=== PATIENT | male | born 1955 | race Caucasian/White ===

== ENCOUNTER 2022-06-02 08:54 | Inpatient (IN) | payer MEDICARE, MEDICAID, SELFPAY ==
[2022-06-02] VITALS (70 sets, daily range): BP systolic 103–216; BP diastolic 56–118; PULSE 68–139; RESP 8–42; TEMP 36.6; O2SAT 88–99; BMI 27.1
--- NOTE | 2022-06-02 09:12 | DI.RAD.S_ITS ---
PROCEDURE: XR CHEST 1V INDICATIONS: short of breath TECHNIQUE: One view of the chest was acquired. COMPARISON: None. FINDINGS: Surgical changes and devices: A left PICC terminates in the mid SVC. Lungs and pleura: Lungs are clear. No pleural effusions or pneumothorax. Mediastinum: Mediastinal contours appear normal. Heart size is normal. Bones and chest wall: No suspicious bony lesions. Overlying soft tissues appear unremarkable. IMPRESSION: No acute radiographic abnormality. A left PICC terminates in the mid SVC. Dictated by: Douglas Fernandez M.D. on 06/02/2022 at 9:58 Approved by: Douglas Fernandez M.D. on 06/02/2022 at 9:58
[2022-06-02 09:19] LABS: Add Manual Diff / Slide Review NO; Basophils Absolute Auto 0 /uL (0-100); Basophils Percent Auto 0.2 % (0-2); Eosinophils Absolute Auto 0 /uL (0-450); Eosinophils Percent Auto 0.2 % (2-4); Hematocrit 42.2 % (41-53); Hemoglobin 14.2 g/dL (13.5-17.5); Lymphocytes Absolute Auto 900 /uL (1100-4500); Lymphocytes Percent Auto 8.6 % (25-40); Mean Corpuscular HGB Conc 33.7 % (30-36); Mean Corpuscular Hemoglobin 28.4 PG (26-34); Mean Corpuscular Volume 84.3 fL (80-100); Monocytes Absolute Auto 400 /uL (0-900); Monocytes Percent Auto 3.3 % (3-14); Neutrophils Absolute Auto 9400 /uL (1500-7000); Neutrophils Percent Auto 87.7 % (50-75); Platelet Count 271 X10^3/uL (150-400); Red Blood Cell Count 5.01 X10^6/uL (4.5-5.9); Red Cell Distribution Width 16.3 % (11.6-14.8); White Blood Cell Count 10.8 X10^3/uL (4.5-11.0)
[2022-06-02 09:32] LABS: Alanine Aminotransferase 33 IU/L (<50); Albumin 4.3 g/dL (3.5-5.0); Albumin Globulin Ratio 1.1 (1.0-2.8); Alkaline Phosphatase 203 U/L (38-126); Aspartate Aminotransferase 34 IU/L (17-59); BUN Creatinine Ratio 16.7 (6-22); Bilirubin Total 0.5 mg/dL (0.2-1.3); Blood Urea Nitrogen 19 mg/dL (9-20); Calcium 9.2 mg/dL (8.4-10.2); Carbon Dioxide 20 mmol/L (22-32); Chloride 105 mmol/L (98-107); Creatine Kinase 107 U/L (55-170); Estimated Glomerular Filt Rate > 60 mL/min (>60); Globulin 3.8 g/dL (1.7-4.1); Glucose 179 mg/dL (80-110); HEMOLYSIS 16 (0-50); Potassium 4.3 mmol/L (3.4-5.1); Sodium 138 mmol/L (137-145); Total Protein 8.1 g/dL (6.3-8.2)
[2022-06-02 09:40] LABS: COVID19 -Nasal RAPID Negative (Negative)
[2022-06-02 09:43] LABS: Troponin I < 0.012 ng/mL (0.01-0.034)
[2022-06-02 09:47] LABS: CKMB % Relative Index 1.7 % (1.5-5.0); Creatine Kinase MB 1.77 ng/mL (<2.37)
[2022-06-02 09:48] LABS: Procalcitonin 0.08 ng/mL (<0.5)
[2022-06-02 09:55] LABS: Lactate (Lactic Acid) 6.5 mmol/L (0.7-2.1)
--- NOTE | 2022-06-02 10:05 | ED_ITS ---
HPI - Weakness General Chief complaint: Neuro Symptoms/Deficit Stated complaint: Foggy, possible infection Time Seen by Provider: 06/02/22 09:12 Source: patient and EMS Mode of arrival: EMS History of Present Illness HPI Narrative: Patient is a 66-year-old with recent peritoneal abscess with drain, type 2 diabetes, BPH presenting today with left arm shaking. He is currently residing at a rehab facility. He is getting IV antibiotics PICC line for his peritoneal abscess. He was admitted at [facility] for this abscess records have been requested. This morning he woke up with left arm shaking. He reports he was conscious the whole time his arm was shaking he was able to kind of stop it. Kind of slid off the bed did not hit his head. It then happened again. He just does not feel quite right. He denies any fever or chills. He has no worsening abdominal pain he reports that the drain seems to be working it is draining s erosanguineous fluid. Bowel movements are normal no chest pain or shortness of breath although he is noted to be mildly hypoxic. He reports that he is on IV antibiotics until August. He was noted quite tachycardic per EMS with a heart rate in the 130s but here initially at 113 Related Data Allergies Allergy/AdvReac Type Severity Reaction Status Date / Time midazolam [From Versed] AdvReac Drowsy Verified 06/02/22 15:36 Review of Systems Review of Systems ROS Unobtainable: All systems reviewed & are unremarkable except as noted in HPI and below Patient History Medical History Type 2 diabetes mellitus Surgical History History of ureter stent Social History household members: spouse Smoking Status: Never smoker Smoking Status: Never smoker alcohol intake frequency: 0-2 drinks per day Substance Use Type: marijuana Exam Initial Vital Signs Initial Vital Signs: Vital Signs Pulse Rate 115 H 06/02/22 08:56 Pulse Oximetry 95 06/02/22 08:56 GENERAL: Alert pleasant 66-year-old male and in no acute distress. HEENT: Head atraumatic,EOMI, pupils reactive, face symmetric, moist mucous membranes CARDIOVASCULAR: Regular rate and rhythm without murmurs, rubs or gallops. RESPIRATORY: Breath sounds equal bilaterally, no wheezes rales or rhonchi. ABDOMEN: Soft, nontender. Normoactive bowel sounds all 4 quadrants. No guarding or rebound. Left lower flank/quadrant drain serosanguineous fluid EXTREMITIES: Normal range of motion, no clubbing or edema. Neurovascularly intact NEUROLOGICAL: Alert and oriented x4.Normal gait and speech. Heel [place] strength equal bilaterally SKIN: Warm, dry, no laceration, no petechiae, no rashes or lesions. PICC line in place left arm no erythema significant swelling Course Orders Ordered: ED Orders 06/02/22 22:56 Consult to Tele-revenue cycle manager Routine 06/02/22 23:08 Consult to Dietitian, Adult Routine Consult to Occupational Therapy Evaluate & Treat Consult to Physical Therapy Evaluate & Treat 06/02/22 23:15 PTT Partial Thromboplastin Bob Q6H 06/02/22 23:24 Hemoglobin and Hematocrit Urgent Magnesium Urgent 06/02/22 23:37 Urine Culture Stat 06/03/22 05:46 Complete Blood Count AUTO DIFF DAILY Comprehensive Metabolic Panel DAILY PTT Partial Thromboplastin Bob Q6H 06/03/22 11:15 PTT Partial Thromboplastin Bob Q6H 06/03/22 17:15 PTT Partial Thromboplastin Bob Q6H 06/04/22 05:00 Complete Blood Count AUTO DIFF DAILY Comprehensive Metabolic Panel DAILY 06/05/22 05:00 Complete Blood Count AUTO DIFF DAILY Comprehensive Metabolic Panel DAILY 06/06/22 05:00 Complete Blood Count AUTO DIFF DAILY Comprehensive Metabolic Panel DAILY Acetaminophen (Acetaminophen 325 Mg Tablet) 650 mg PO Q6H PRN PRN Reason: Fever/Mild Pain (1-3) Hydrocodone Bitart/Acetaminophen (Hydrocodone/Acet 5/325 Tablet) 2 tab PO Q4H PRN PRN Reason: Pain, Severe (5-10) Last Admin: 06/03/22 06:20 Dose: 2 tab Documented By: AW Al Hydrox/Mg Hydrox/Simethicone (Mag Hydrox/Alum/Simeth 30 Ml Udc) 30 ml PO Q6HR PRN PRN Reason: Dyspepsia Calcium Carbonate (Calcium Carbonate 500 Mg Tab) 1,000 mg PO Q4HR PRN PRN Reason: Dyspepsia Dextrose (Dextrose 50 % In Water 25 Gm/50 Ml Syringe) 25 gm IV PRN PRN PRN Reason: Hypoglycemia Heparin Sodium/Dextrose (Heparin Drip) 25,000 unit in 500 mls @ 24 mls/hr IV CONT SHANNON; Protocol Last Titration: 06/03/22 06:38 Dose: 1,500 units/hr, 30 mls/hr Documented By: Titration: 06/03/22 01:39 Dose: 1,400 units/hr, 28 mls/hr Documented By: Titration: 06/02/22 19:30 Dose: 1,300 units/hr, 26 mls/hr Documented By: Titration: 06/02/22 18:30 Dose: 0 units/hr, 0 mls/hr Documented By: Admin: 06/02/22 12:17 Dose: 1,200 units/hr, 24 mls/hr Documented By: LANETTE Ertapenem 1 gm/ Sodium (Chloride) 100 mls @ 200 mls/hr IV Q24H [facility] Last Infusion: 06/03/22 06:51 Dose: 0 mls/hr Documented By: Admin: 06/03/22 06:19 Dose: 200 mls/hr Documented By: PARAG Insulin Glargine (Insulin Glargine 100 Unit/Ml 3ml Pen) 8 unit SUBCUT 0800 [facility] Insulin Human Lispro (Insulin Lispro 100 Unit/Ml 3ml Vial) 0 unit SUBCUT ACHS [facility]; Protocol Levetiracetam (Levetiracetam 250 Mg Tablet) 1,500 mg PO BID [facility] Last Admin: 06/03/22 00:00 Dose: 1,500 mg Documented By: PARAG Metoprolol Tartrate (Metoprolol Tartrate 5 Mg/5 Ml Inj) 5 mg IV Q15MIN [facility] Stop: 06/04/22 20:01 Naloxone HCl (Naloxone 0.4 Mg/Ml Vial) 0.2 mg IV Q2MIN PRN PRN Reason: Opiate Reversal Ondansetron HCl (Ondansetron 4 Mg/2 Ml Inj) 4 mg IV Q4HR PRN PRN Reason: Nausea And Vomiting Discontinued Medications Heparin Sodium (Porcine) (Heparin 5,000 Unit/Ml Vial) 7,300 unit 80 unit/kg (7300 unit) IV NOW ONE Stop: 06/02/22 11:34 Last Admin: 06/02/22 12:17 Dose: 7,300 unit Documented By: LANETTE Heparin Sodium (Porcine) (Heparin 5,000 Unit/Ml Vial) 2,000 unit IV NOW ONE Stop: 06/02/22 18:50 Last Admin: 06/02/22 19:24 Dose: 2,000 unit Documented By: LANETTE Heparin Sodium (Porcine) (Heparin 5,000 Unit/Ml Vial) 2,000 unit IV NOW ONE Stop: 06/03/22 01:41 Last Admin: 06/03/22 01:43 Dose: 2,000 unit Documented By: PARAG Heparin Sodium (Porcine) (Heparin 5,000 Unit/Ml Vial) 2,000 unit IV NOW ONE Stop: 06/03/22 06:35 Last Admin: 06/03/22 06:44 Dose: 2,000 unit Documented By: PARAG Sodium Chloride (Normal Saline 0.9%) 2,721.54 mls @ 907.18 mls/hr 30 ml/kg infuse over 3 hr (2721.54 ml) IV NOW ONE Stop: 06/02/22 13:12 Last Infusion: 06/02/22 13:58 Dose: 0 mls/hr Documented By: Admin: 06/02/22 10:16 Dose: 907.18 mls/hr Documented By: LANETTE Levetiracetam 1,000 mg/ Sodium (Chloride) 110 mls @ 440 mls/hr IV NOW ONE Stop: 06/02/22 13:34 Last Infusion: 06/02/22 15:00 Dose: 0 mls/hr Documented By: Admin: 06/02/22 14:32 Dose: 440 mls/hr Documented By: LANETTE Vital Signs Vital signs: Vital Signs - 8 hr 06/02/22 23:15 06/02/22 23:15 06/02/22 23:30 Temperature Pulse Rate 76 Respiratory Rate 18 Blood Pressure 119/75 141/73 H Pulse Oximetry 94 06/02/22 23:30 06/02/22 23:45 06/02/22 23:45 Temperature Pulse Rate 81 74 Respiratory Rate 13 16 Blood Pressure 119/67 Pulse Oximetry 96 95 06/03/22 00:00 06/03/22 00:00 06/03/22 00:15 Temperature Pulse Rate 70 75 Respiratory Rate 22 15 Blood Pressure 116/65 Pulse Oximetry 95 94 06/03/22 00:15 06/03/22 00:30 06/03/22 00:30 Temperature Pulse Rate 93 H Respiratory Rate 27 H Blood Pressure 124/67 104/77 Pulse Oximetry 95 06/03/22 01:00 06/03/22 01:00 06/03/22 02:00 Temperature Pulse Rate 82 Respiratory Rate 16 Blood Pressure 127/65 108/69 Pulse Oximetry 95 06/03/22 02:00 06/03/22 03:00 06/03/22 03:00 Temperature Pulse Rate 77 75 Respiratory Rate 15 16 Blood Pressure 122/70 Pulse Oximetry 95 06/03/22 04:00 06/03/22 04:00 06/03/22 04:02 Temperature Pulse Rate 69 83 Respiratory Rate 14 16 Blood Pressure 90/57 L Pulse Oximetry 92 93 06/03/22 04:02 06/03/22 05:00 06/03/22 05:00 Temperature Pulse Rate 72 Respiratory Rate 14 Blood Pressure 111/63 102/63 Pulse Oximetry 95 06/03/22 05:11 Temperature 98.2 F Pulse Rate 84 Respiratory Rate 12 Blood Pressure 121/81 Pulse Oximetry 97 MDM - Weakness Lab Data 06/03/22 05:46 06/03/22 05:46 Labs: Lab Results 06/02/22 06/02/22 06/02/22 Range/Units 09:05 09:05 09:05 WBC 10.8 (4.5-11.0) X10^3/uL RBC 5.01 (4.5-5.9) X10^6/uL Hgb 14.2 (13.5-17.5) g/dL Hct 42.2 (41-53) % MCV 84.3 (80-100) fL MCH 28.4 (26-34) PG MCHC 33.7 (30-36) % RDW 16.3 H (11.6-14.8) % Plt Count 271 (150-400) X10^3/uL Neut % (Auto) 87.7 H (50-75) % Lymph % (Auto) 8.6 L (25-40) % [place] % (Auto) 3.3 (3-14) % Eos % (Auto) 0.2 L (2-4) % Baso % (Auto) 0.2 (0-2) % Neut # (Auto) 9400 H (1961-8980) /uL Lymph # (Auto) 900 L (4249-9040) /uL [place] # (Auto) 400 (0-900) /uL Eos # (Auto) 0 (0-450) /uL Baso # (Auto) 0 (0-100) /uL APTT (26-36) SECONDS Sodium 138 (137-145) mmol/L Potassium 4.3 (3.4-5.1) mmol/L Chloride 105 (98-107) mmol/L Carbon Dioxide 20 L (22-32) mmol/L BUN 19 (9-20) mg/dL Creatinine 1.14 (0.66-1.25) mg/dL Estimated GFR > 60 (>60) mL/min BUN/Creatinine Ratio 16.7 (6-22) Glucose 179 H (80-110) mg/dL Lactate 6.5 H* (0.7-2.1) mmol/L Calcium 9.2 (8.4-10.2) mg/dL Magnesium (1.6-2.3) mg/dL Total Bilirubin 0.5 (0.2-1.3) mg/dL AST 34 (17-59) IU/L ALT 33 (<50) IU/L Alkaline Phosphatase 203 H (38-126) U/L Total Creatine Kinase 107 (55-170) U/L CK-MB (CK-2) 1.77 (<2.37) ng/mL CK-MB (CK-2) Rel Index 1.7 (1.5-5.0) % Troponin I < 0.012 (0.01-0.034) ng/mL NT-Pro-B Natriuret Pep (<125) pg/mL Total Protein 8.1 (6.3-8.2) g/dL Albumin 4.3 (3.5-5.0) g/dL Globulin 3.8 (1.7-4.1) g/dL Albumin/Globulin Ratio 1.1 (1.0-2.8) Procalcitonin 0.08 (<0.5) ng/mL Prolactin (3.7-17.9) ng/mL Urine Color Urine Appearance Urine pH (4.5-8.0) Ur Specific [place] (1.000-1.035) Urine Protein (Negative) Urine Glucose (UA) (Negative) g/dL Urine Ketones (NEGATIVE) Urine Occult Blood (Negative) Urine Nitrate (Negative) Urine Bilirubin (NEGATIVE) Urine Urobilinogen (0.2) E.U./dL Ur Leukocyte Esterase (NEGATIVE) Urine RBC (0-5/HPF) Urine WBC (0-5/HPF) Ur Squamous Epith Cells (0-5/HPF) Urine Bacteria (None) Ur Culture Indicated? SARS-CoV-2 (PCR) (Negative) 06/02/22 06/02/22 06/02/22 Range/Units 09:05 09:19 10:00 WBC (4.5-11.0) X10^3/uL RBC (4.5-5.9) X10^6/uL Hgb (13.5-17.5) g/dL Hct (41-53) % MCV (80-100) fL MCH (26-34) PG MCHC (30-36) % RDW (11.6-14.8) % Plt Count (150-400) X10^3/uL Neut % (Auto) (50-75) % Lymph % (Auto) (25-40) % [place] % (Auto) (3-14) % Eos % (Auto) (2-4) % Baso % (Auto) (0-2) % Neut # (Auto) (0429-8151) /uL Lymph # (Auto) (8100-8740) /uL [place] # (Auto) (0-900) /uL Eos # (Auto) (0-450) /uL Baso # (Auto) (0-100) /uL APTT (26-36) SECONDS Sodium (137-145) mmol/L Potassium (3.4-5.1) mmol/L Chloride (98-107) mmol/L Carbon Dioxide (22-32) mmol/L BUN (9-20) mg/dL Creatinine (0.66-1.25) mg/dL Estimated GFR (>60) mL/min BUN/Creatinine Ratio (6-22) Glucose (80-110) mg/dL Lactate (0.7-2.1) mmol/L Calcium (8.4-10.2) mg/dL Magnesium (1.6-2.3) mg/dL Total Bilirubin (0.2-1.3) mg/dL AST (17-59) IU/L ALT (<50) IU/L Alkaline Phosphatase (38-126) U/L Total Creatine Kinase (55-170) U/L CK-MB (CK-2) (<2.37) ng/mL CK-MB (CK-2) Rel Index (1.5-5.0) % Troponin I (0.01-0.034) ng/mL NT-Pro-B Natriuret Pep 93 (<125) pg/mL Total Protein (6.3-8.2) g/dL Albumin (3.5-5.0) g/dL Globulin (1.7-4.1) g/dL Albumin/Globulin Ratio (1.0-2.8) Procalcitonin (<0.5) ng/mL Prolactin 16.9 (3.7-17.9) ng/mL Urine Color Urine Appearance Urine pH (4.5-8.0) Ur Specific [place] (1.000-1.035) Urine Protein (Negative) Urine Glucose (UA) (Negative) g/dL Urine Ketones (NEGATIVE) Urine Occult Blood (Negative) Urine Nitrate (Negative) Urine Bilirubin (NEGATIVE) Urine Urobilinogen (0.2) E.U./dL Ur Leukocyte Esterase (NEGATIVE) Urine RBC (0-5/HPF) Urine WBC (0-5/HPF) Ur Squamous Epith Cells (0-5/HPF) Urine Bacteria (None) Ur Culture Indicated? SARS-CoV-2 (PCR) Negative (Negative) 06/02/22 06/02/22 06/02/22 Range/Units 10:47 11:55 11:55 WBC (4.5-11.0) X10^3/uL RBC (4.5-5.9) X10^6/uL Hgb (13.5-17.5) g/dL Hct (41-53) % MCV (80-100) fL MCH (26-34) PG MCHC (30-36) % RDW (11.6-14.8) % Plt Count (150-400) X10^3/uL Neut % (Auto) (50-75) % Lymph % (Auto) (25-40) % [place] % (Auto) (3-14) % Eos % (Auto) (2-4) % Baso % (Auto) (0-2) % Neut # (Auto) (4450-2005) /uL Lymph # (Auto) (6958-2879) /uL [place] # (Auto) (0-900) /uL Eos # (Auto) (0-450) /uL Baso # (Auto) (0-100) /uL APTT 27 (26-36) SECONDS Sodium (137-145) mmol/L Potassium (3.4-5.1) mmol/L Chloride (98-107) mmol/L Carbon Dioxide (22-32) mmol/L BUN (9-20) mg/dL Creatinine (0.66-1.25) mg/dL Estimated GFR (>60) mL/min BUN/Creatinine Ratio (6-22) Glucose (80-110) mg/dL Lactate 8.9 H* (0.7-2.1) mmol/L Calcium (8.4-10.2) mg/dL Magnesium (1.6-2.3) mg/dL Total Bilirubin (0.2-1.3) mg/dL AST (17-59) IU/L ALT (<50) IU/L Alkaline Phosphatase (38-126) U/L Total Creatine Kinase (55-170) U/L CK-MB (CK-2) (<2.37) ng/mL CK-MB (CK-2) Rel Index (1.5-5.0) % Troponin I (0.01-0.034) ng/mL NT-Pro-B Natriuret Pep (<125) pg/mL Total Protein (6.3-8.2) g/dL Albumin (3.5-5.0) g/dL Globulin (1.7-4.1) g/dL Albumin/Globulin Ratio (1.0-2.8) Procalcitonin (<0.5) ng/mL Prolactin (3.7-17.9) ng/mL Urine Color Yellow Urine Appearance Clear Urine pH 6.0 (4.5-8.0) Ur Specific [place] 1.020 (1.000-1.035) Urine Protein Trace H (Negative) Urine Glucose (UA) Trace H (Negative) g/dL Urine Ketones Negative (NEGATIVE) Urine Occult Blood 1+ H (Negative) Urine Nitrate Negative (Negative) Urine Bilirubin Negative (NEGATIVE) Urine Urobilinogen 0.2 (0.2) E.U./dL Ur Leukocyte Esterase Negative (NEGATIVE) Urine RBC 1-5/hpf (0-5/HPF) Urine WBC 1-5/hpf (0-5/HPF) Ur Squamous Epith Cells 0-1 /hpf (0-5/HPF) Urine Bacteria None seen (None) Ur Culture Indicated? Cult not indicated SARS-CoV-2 (PCR) (Negative) 06/02/22 06/02/22 06/02/22 Range/Units 15:46 17:55 23:24 WBC (4.5-11.0) X10^3/uL RBC (4.5-5.9) X10^6/uL Hgb (13.5-17.5) g/dL Hct (41-53) % MCV (80-100) fL MCH (26-34) PG MCHC (30-36) % RDW (11.6-14.8) % Plt Count (150-400) X10^3/uL Neut % (Auto) (50-75) % Lymph % (Auto) (25-40) % [place] % (Auto) (3-14) % Eos % (Auto) (2-4) % Baso % (Auto) (0-2) % Neut # (Auto) (3076-5919) /uL Lymph # (Auto) (7304-9125) /uL [place] # (Auto) (0-900) /uL Eos # (Auto) (0-450) /uL Baso # (Auto) (0-100) /uL APTT 58 H D (26-36) SECONDS Sodium (137-145) mmol/L Potassium (3.4-5.1) mmol/L Chloride (98-107) mmol/L Carbon Dioxide (22-32) mmol/L BUN (9-20) mg/dL Creatinine (0.66-1.25) mg/dL Estimated GFR (>60) mL/min BUN/Creatinine Ratio (6-22) Glucose (80-110) mg/dL Lactate 0.9 (0.7-2.1) mmol/L Calcium (8.4-10.2) mg/dL Magnesium 1.9 (1.6-2.3) mg/dL Total Bilirubin (0.2-1.3) mg/dL AST (17-59) IU/L ALT (<50) IU/L Alkaline Phosphatase (38-126) U/L Total Creatine Kinase (55-170) U/L CK-MB (CK-2) (<2.37) ng/mL CK-MB (CK-2) Rel Index (1.5-5.0) % Troponin I (0.01-0.034) ng/mL NT-Pro-B Natriuret Pep (<125) pg/mL Total Protein (6.3-8.2) g/dL Albumin (3.5-5.0) g/dL Globulin (1.7-4.1) g/dL Albumin/Globulin Ratio (1.0-2.8) Procalcitonin (<0.5) ng/mL Prolactin (3.7-17.9) ng/mL Urine Color Urine Appearance Urine pH (4.5-8.0) Ur Specific [place] (1.000-1.035) Urine Protein (Negative) Urine Glucose (UA) (Negative) g/dL Urine Ketones (NEGATIVE) Urine Occult Blood (Negative) Urine Nitrate (Negative) Urine Bilirubin (NEGATIVE) Urine Urobilinogen (0.2) E.U./dL Ur Leukocyte Esterase (NEGATIVE) Urine RBC (0-5/HPF) Urine WBC (0-5/HPF) Ur Squamous Epith Cells (0-5/HPF) Urine Bacteria (None) Ur Culture Indicated? SARS-CoV-2 (PCR) (Negative) 06/02/22 06/03/22 Range/Units 23:24 01:15 WBC (4.5-11.0) X10^3/uL RBC (4.5-5.9) X10^6/uL Hgb 12.1 L (13.5-17.5) g/dL Hct 35.9 L (41-53) % MCV (80-100) fL MCH (26-34) PG MCHC (30-36) % RDW (11.6-14.8) % Plt Count (150-400) X10^3/uL Neut % (Auto) (50-75) % Lymph % (Auto) (25-40) % [place] % (Auto) (3-14) % Eos % (Auto) (2-4) % Baso % (Auto) (0-2) % Neut # (Auto) (5589-1738) /uL Lymph # (Auto) (2845-9999) /uL [place] # (Auto) (0-900) /uL Eos # (Auto) (0-450) /uL Baso # (Auto) (0-100) /uL APTT 50 H (26-36) SECONDS Sodium (137-145) mmol/L Potassium (3.4-5.1) mmol/L Chloride (98-107) mmol/L Carbon Dioxide (22-32) mmol/L BUN (9-20) mg/dL Creatinine (0.66-1.25) mg/dL Estimated GFR (>60) mL/min BUN/Creatinine Ratio (6-22) Glucose (80-110) mg/dL Lactate (0.7-2.1) mmol/L Calcium (8.4-10.2) mg/dL Magnesium (1.6-2.3) mg/dL Total Bilirubin (0.2-1.3) mg/dL AST (17-59) IU/L ALT (<50) IU/L Alkaline Phosphatase (38-126) U/L Total Creatine Kinase (55-170) U/L CK-MB (CK-2) (<2.37) ng/mL CK-MB (CK-2) Rel Index (1.5-5.0) % Troponin I (0.01-0.034) ng/mL NT-Pro-B Natriuret Pep (<125) pg/mL Total Protein (6.3-8.2) g/dL Albumin (3.5-5.0) g/dL Globulin (1.7-4.1) g/dL Albumin/Globulin Ratio (1.0-2.8) Procalcitonin (<0.5) ng/mL Prolactin (3.7-17.9) ng/mL Urine Color Urine Appearance Urine pH (4.5-8.0) Ur Specific [place] (1.000-1.035) Urine Protein (Negative) Urine Glucose (UA) (Negative) g/dL Urine Ketones (NEGATIVE) Urine Occult Blood (Negative) Urine Nitrate (Negative) Urine Bilirubin (NEGATIVE) Urine Urobilinogen (0.2) E.U./dL Ur Leukocyte Esterase (NEGATIVE) Urine RBC (0-5/HPF) Urine WBC (0-5/HPF) Ur Squamous Epith Cells (0-5/HPF) Urine Bacteria (None) Ur Culture Indicated? SARS-CoV-2 (PCR) (Negative) Imaging Data Chest x-ray: Radiologist Impression: PROCEDURE:? XR CHEST 1V ? INDICATIONS:? short of breath ? TECHNIQUE:? One view of the chest was acquired.? ? COMPARISON:? None. ? FINDINGS:? ? Surgical changes and devices:? A left PICC terminates in the mid SVC. ? Lungs and pleura:? Lungs are clear.? No pleural effusions or pneumothorax.? ? Mediastinum:? Mediastinal contours appear normal.? Heart size is normal.? ? Bones and chest wall:? No suspicious bony lesions.? Overlying soft tissues appear unremarkable.? ? IMPRESSION:? No acute radiographic abnormality.? A left PICC terminates in the mid SVC. ? ? Dictated by: Douglas Fernandez M.D. on 06/02/2022 at 9:58 ?? CT scan - abdomen/pelvis: Radiologist Impression: PROCEDURE:? CT ABDOMEN PELVIS W CON ? INDICATIONS:? left drain with peritoneal abscess ? TECHNIQUE:? After the administration of intravenous contrast, axial sections acquired from the lung bases to the pubic symphysis.? Coronal and sagittal reformats were performed.? For radiation dose reduction, the following was used:? automated exposure control, adjustment of mA and/or kV according to patient size.? ? COMPARISON:? Outside Film, CT, CT ABDOMEN PELVIS WITHOUT CONTRAST, 04/28/2022, 15:14. ? FINDINGS:? Image quality:? Good ? Lower chest:? Separately dictated ? Solid organs:? The liver is unremarkable.? Gallbladder is mildly distended plate no pathologic dilation of the biliary tree or pancreatic duct.? No splenomegaly.? No adrenal nodules.? Similar moderate to severe right hydronephrosis, without obstructing stone identified.? Decrease left hydronephrosis, with ureteral stent in place.? A large mid ureteral calcified stone is present, measuring up to 11 x 11 by 13 mm.? Nonobstructing punctate left intrarenal calculus is also present.? ? Vessels and lymph nodes:? Main portal vein is patent.? No abdominal aortic aneurysm.? No pathologic adenopathy by size criteria.? prior fat necrosis adjacent to the left inguinal region. ? Bowel and peritoneum:? No evidence of small bowel obstruction.? Moderate colorectal stool burden.? No pathologic ascites.? No drainable intra-abdominal abscess.? The appendix is normal.? There is wall thickening of the sigmoid colon again seen, with numerous diverticula ? Body wall:? Small fat containing umbilical hernia.? There is a drain in the suspected fluid collection along the left pelvic wall adjacent to the comminuted iliac fracture.? Comminution appears increased compared to prior peer measurement for the collection itself is slightly smaller than 04/28/2022, about 3 x 3 cm, previously 3.8 x 5.3 cm.? However, fluid extending into the left vastus muscles () seem slightly larger. ? Pelvis:? Bladder is unremarkable.? Prostate is not well evaluated on this study. ? Bones:? Left iliac and pelvic sidewall findings as above.? Fixated right proximal femur fracture.? Lumbosacral degenerative changes.? Left transverse process fractures as before. ? IMPRESSION:? Moderate to severe right hydronephrosis persists.? Decreased left hydronephrosis, post stent placement.? A left mid ureter stone measuring up to 13 mm in similar position. ? Left comminuted iliac wing fracture with drain in place in an adjacent fluid collection which is smaller compared to 04/28/2022, however fluid extending into the left vastus muscles, partially seen, appears slightly enlarged (, 2/).? ? Likely chronic diverticular inflammation and wall thickening of the sigmoid colon, please consider correlation with colonoscopy results.? ? Other findings as above.? Chest findings separately dictated? ? Dictated by: Douglas Fernandez M.D. on 06/02/2022 at 11:17 ? ? CT scan - chest: Radiologist Impression: PROCEDURE:? CT ANGIO CHEST PE PROTOCOL ? INDICATIONS:? hypoxia ? TECHNIQUE:? After the administration of intravenous contrast, 2 mm thick sections acquired from the pulmonary apices to the posterior costophrenic angles.? 3-dimensional maximum intensity projection (MIP) coronal and sagittal reformats were then acquired through the thorax.? For radiation dose reduction, the following was used:? automated exposure control, adjustment of mA and/or kV according to patient size.? ? COMPARISON:? Outside Film, CT, CT ANGIO CHEST PE, 04/28/2022, 14:07. ? FINDINGS:? Image quality:? Good ? Lungs and pleura:? Suspected basal scarring/atelectasis.? No dense consolidation or pleural effusion.? No nodules identified that requires follow-up imaging.? Stable micro nodules are present, for example in the lingula. ? Mediastinum, heart, and esophagus:? There is an acute pulmonary embolism arising from the left artery. Nonspecific mild thickening of the distal esophageal wall.? There are coronary calcifications.? There may be signs of right heart strain by CT.? No pathologic adenopathy by size criteria. ? Chest wall and thyroid:? A left central line terminates in the SVC. ? Upper abdomen:? Separately dictated ? Bones:? Scattered degenerative changes.? No acute abnormality identified.? Some rib deformities may not be acute ? IMPRESSION:? Positive for left-sided PE.? Possible right heart strain.? Other findings as above. ? Communicated to the? ED at the timestamp below. ? ? Dictated by: Douglas Fernandez M.D. on 06/02/2022 at 11:10 ?? US - DVT: Radiologist Impression: PROCEDURE:? US PERIPH VENOUS UP EXTREM LT ? INDICATIONS:? ? dvt ? TECHNIQUE:? Real-time imaging, as well as color and pulse Doppler interrogation, was performed of the left upper extremity deep veins from the inferior neck to the antecubital fossa.? ? COMPARISON:? [facility], CR, XR CHEST 1V, 06/02/2022, 9:33. ? FINDINGS:? There is a PICC line on the left.? Unable to visualize the central left brachial vein and basilic vein due to PICC line dressing.? ? The internal jugular vein, visualized portions of the subclavian vein and axillary veins are free of intraluminal thrombus.? Where physically possible, the veins are normally compressible.? Color and pulse Doppler demonstrate normal intraluminal flow, w ith expected phasicity and pulsatility.? Additional scanning of the cephalic and basilic veins of the superficial system demonstrate normal compressibility, without thrombus.? ? IMPRESSION:? ? 1. No DVT in the left upper extremity is identified on ultrasound. 2. Compromised exam due to inability to visualize the central brachial vein and basilic vein due to a PICC line dressing.? ? ? Dictated by: Danielle Jaffe M.D. on 06/02/2022 at 10:49 ? CT scan - head: Radiologist Impression: PROCEDURE:? CT HEAD/BRAIN WO CON ? INDICATIONS:? new seizure ? TECHNIQUE:? Noncontrast 4.5 mm thick angled axial sections acquired from the foramen magnum to the vertex, with coronal and sagittal reformats.? For radiation dose reduction, the following was used:? automated exposure control, adjustment of mA and/or kV according to patient size.? ? COMPARISON:? None. ? FINDINGS:? Image quality:? Limited due to presence of contrast ? CSF spaces: Basal cisterns are patent. Lateral ventricles are symmetric. Volume:? Vascular calcifications. Periventricular white matter disease is commonly seen with chronic microangiopathy. Volume loss is present. These findings are [id number] ? ? Brain:? No definite intracranial hemorrhage, although this is difficult to evaluate due to the presence of recently administered contrast.? No gross loss of moraes-white differentiation. ? Craniofacial structures:? Right paranasal sinus mucous cyst.? Orbits are unre markable. ? IMPRESSION:? Limited evaluation due to the presence of recently administered contrast.? No definite large hematoma.? Consider later reassessment following contrast clearance.? If there is high concern for parenchymal abnormality also consider MRI.? ? ? Dictated by: Douglas Fernandez M.D. on 06/02/2022 at 11:51 ? ? Echo: Radiologist Impression: ? Echocardiogram Report + + :Name: PATO AKERS ? Study Date: 06/02/2022 ? Height: 72 in? : :[facility] ? ? ReadingLocation: ? Weight: 190 lb : : ? Gender: Male ? BSA: 2.1 m2? ? : :: 1955? Age: 66 yrs? BP: 149/80 mmHg: :Reason For Study: RIGHT HEART STRAIN? HR: 75 ? : :Ordering Physician: DONNIE, ? : :NIURKA ? Performed By: MILO SILVA? : :Referring: NIURKA FIELDS ? : + + Interpretation Summary Pt could not stay awake to follow breathing/position instructions. The ejection fraction is estimated to be 55-60%. Diastolic parameters suggest probable normal left ventricular diastolic function and normal filling pressures. The right ventricle is normal in size and function. The right atrium is mildly dilated. There is mild tricuspid regurgitation. The right ventricular systolic pressure is estimated to be at least 18 mmHg based on an estimated right atrial pressure of 3 mm Hg. ? Procedure: ? A two-dimensional transthoracic echocardiogram with color flow and Doppler was performed. The study quality was technically difficult. There is no prior echocardiogram noted for this patient. The patient was in normal sinus rhythm during the exam. Left Ventricle: ? The left ventricle is normal in size and wall thickness. Left ventricular systolic function is normal. The ejection fraction is estimated to be 55-60%. Diastolic parameters suggest probable normal left ventricular diastolic function and normal filling pressures. Right Ventricle: ? The right ventricle is normal in size and function. Atria: ? The left atrial size is normal. The right atrium is mildly dilated. There is no Doppler evidence for an interatrial shunt. Mitral Valve: ? The mitral valve is normal in structure and function. There is trace mitral regurgitation. Aortic Valve: ? The aortic valve opens well. There is no aortic valve stenosis. No aortic regurgitation is present. Tricuspid Valve: ? The tricuspid valve is normal in structure and function. There is mild tricuspid regurgitation. The right ventricular systolic pressure is estimated to be at least 18 mmHg based on an estimated right atrial pressure of 3 mm Hg. Pulmonic Valve: ? The pulmonic valve is normal in structure and function. There is no pulmonic valvular regurgitation. Great Vessels: ? The aortic root is normal size. The ascending aorta could not be visualized. The IVC is of normal diameter and collapses greater than 50% with a sniff. This suggests a low right atrial pressure of 3 mm Hg. Pericardium/ Pleura ? There is no pericardial effusion. There is no pleural effusion. ? MMode/2D Measurements & Calculations LVIDd: 4.6 cm ? LVOT diam: 2.2 cm LVIDs: 3.6 cm ? Ao root diam: 4.1 cm FS: 22.6 % IVSd: 1.1 cm LVPWd: 1.3 cm LV arizmendi. diameter/BSA (cm/m^2): 2.2 LV sys. diameter/BSA (cm/m^2): 1.7 ? LA A2 area: 18.6 cm2? RA long axis: 4.6 cm LA A4 area: 18.3 cm2? RA area: 14.0 cm2 LA length (vol): 4.7 cm ? RA vol: 36.2 ml LA vol: 61.4 ml ? RA : 17.4 ml/m2 LA vol index: 29.5 ml/m2? IVC diam: 1.8 cm ? RVD1 (basal): 4.5 cm TAPSE: 2.2 cm ? Doppler Measurements & Calculations Ao V2 max: 122.7 cm/sec ? LVOT Max Panda: 112.9 cm/sec Ao V2 mean: 87.0 cm/sec ? LV V1 max P.1 mmHg Ao max P.0 mmHg ? LV V1 VTI: 22.1 cm Ao mean P.3 mmHg? DENIZ(I,D): 3.5 cm2 Ao V2 VTI: 23.8 cm? DENIZ(V,D): 3.5 cm2 ? sev ratio: 0.93 ? DENIZ indexed to BSA (cm^2/m^2): 1.7 ? MV E max panda: 37.8 cm/sec ? TR max panda: 191.0 cm/sec MV A max panda: 55.0 cm/sec ? TR max P.6 mmHg MV E/A: 0.69? PA V2 max: 72.7 cm/sec Med Peak E' Panda: 9.4 cm/sec ? ? ? PA V2 mean: 53.7 cm/sec E/E' med: 4.0 ? PA mean P.2 mmHg Lat Peak E' Panda: 9.3 cm/sec ? ? ? PA pr(Accel): 37.9 mmHg E/E' lat: 4.1 E/e' average: 4.0 MV dec time: 0.24 sec ? SV(LVOT): 83.4 ml ? ECG Data Interpretation: Sinus tachycardia rate 113 AZ interval 150 QRS [address] changes MDM Narrative Medical decision making narrative: Patient 66-year-old male recently admitted to [facility] in April. Records have been received and reviewed. He initially fell in December was sent to [facility] he developed a pulmonary embolism during that visit. Recently he was found to have abscess fluid collection in the left lower quadrant of his pelvis a drain was placed and he was given IV antibiotics and PICC line. He was since been sent to rehab. Today he presents with some confusion and shaking of his left arm. Initially he said when he raise his left arm it Shuck when he lowered down there was no tremors. Lactate is 6.5 no leukocytosis he has been afebrile questionable sepsis versus seizure. Prolactin is negative procalcitonin is negative. He is already on antibiotics. CT angio was done secondary to hypoxia and tachycardia he is found pulmonary embolism not unstable at this time. CT abdomen pelvis shows stable fluid collection and even smaller. Called to patient room he is having full-blown tonic-clonic seizure bit tongue. He is given 1 mg of Ativan. This is the exact moment when lab was supposed to draw a repeat lactate. Repeat lactate is then again elevated. At this time I do think the lactic acid is probably related to seizure he likely had a seizure prior to arrival. Initial lactate 6.5 repeat 8.9 and finally a repeat is at 0.9. He is loaded with Keppra IV. He is started on heparin drip for his pulmonary embolism. CT showed possible right heart strain. I spoke with Dr. Ge who requests patient have an MRI of the brain for the seizure and an echocardiogram for right heart strain in regards to the pulmonary embolism. MRI can not be done until 6:00 p.m. Echocardiogram does not show any significant right heart strain he remains normotensive and not tachycardic and on a heparin drip Patient will be admitted for new onset seizure and pulmonary embolism [facility] accepts patient. Waiting for MRI result Discharge Plan Departure Patient Disposition: Admitted As Inpatient Clinical Impression: Seizure, Pulmonary embolism Admit Date/Time: 06/03/22 05:21 Admit Provider: Xochilt Stone
--- NOTE | 2022-06-02 10:07 | DI.CT.S_ITS ---
PROCEDURE: CT ANGIO CHEST PE PROTOCOL INDICATIONS: hypoxia TECHNIQUE: After the administration of intravenous contrast, 2 mm thick sections acquired from the pulmonary apices to the posterior costophrenic angles. 3-dimensional maximum intensity projection (MIP) coronal and sagittal reformats were then acquired through the thorax. For radiation dose reduction, the following was used: automated exposure control, adjustment of mA and/or kV according to patient size. COMPARISON: Outside Film, CT, CT ANGIO CHEST PE, 04/28/2022, 14:07. FINDINGS: Image quality: Good Lungs and pleura: Suspected basal scarring/atelectasis. No dense consolidation or pleural effusion. No nodules identified that requires follow-up imaging. Stable micro nodules are present, for example in the lingula. Mediastinum, heart, and esophagus: There is an acute pulmonary embolism arising from the left artery. Nonspecific mild thickening of the distal esophageal wall. There are coronary calcifications. There may be signs of right heart strain by CT. No pathologic adenopathy by size criteria. Chest wall and thyroid: A left central line terminates in the SVC. Upper abdomen: Separately dictated Bones: Scattered degenerative changes. No acute abnormality identified. Some rib deformities may not be acute IMPRESSION: Positive for left-sided PE. Possible right heart strain. Other findings as above. Communicated to the ED at the timestamp below. Dictated by: Douglas Fernandez M.D. on 06/02/2022 at 11:10 Approved by: Douglas Fernandez M.D. on 06/02/2022 at 11:16
--- NOTE | 2022-06-02 10:07 | DI.CT.S_ITS ---
PROCEDURE: CT ABDOMEN PELVIS W CON INDICATIONS: left drain with peritoneal abscess TECHNIQUE: After the administration of intravenous contrast, axial sections acquired from the lung bases to the pubic symphysis. Coronal and sagittal reformats were performed. For radiation dose reduction, the following was used: automated exposure control, adjustment of mA and/or kV according to patient size. COMPARISON: Outside Film, CT, CT ABDOMEN PELVIS WITHOUT CONTRAST, 04/28/2022, 15:14. FINDINGS: Image quality: Good Lower chest: Separately dictated Solid organs: The liver is unremarkable. Gallbladder is mildly distended plate no pathologic dilation of the biliary tree or pancreatic duct. No splenomegaly. No adrenal nodules. Similar moderate to severe right hydronephrosis, without obstructing stone identified. Decrease left hydronephrosis, with ureteral stent in place. A large mid ureteral calcified stone is present, measuring up to 11 x 11 by 13 mm. Nonobstructing punctate left intrarenal calculus is also present. Vessels and lymph nodes: Main portal vein is patent. No abdominal aortic aneurysm. No pathologic adenopathy by size criteria. prior fat necrosis adjacent to the left inguinal region. Bowel and peritoneum: No evidence of small bowel obstruction. Moderate colorectal stool burden. No pathologic ascites. No drainable intra-abdominal abscess. The appendix is normal. There is wall thickening of the sigmoid colon again seen, with numerous diverticula Body wall: Small fat containing umbilical hernia. There is a drain in the suspected fluid collection along the left pelvic wall adjacent to the comminuted iliac fracture. Comminution appears increased compared to prior peer measurement for the collection itself is slightly smaller than 04/28/2022, about 3 x 3 cm, previously 3.8 x 5.3 cm. However, fluid extending into the left vastus muscles () seem slightly larger. Pelvis: Bladder is unremarkable. Prostate is not well evaluated on this study. Bones: Left iliac and pelvic sidewall findings as above. Fixated right proximal femur fracture. Lumbosacral degenerative changes. Left transverse process fractures as before. IMPRESSION: Moderate to severe right hydronephrosis persists. Decreased left hydronephrosis, post stent placement. A left mid ureter stone measuring up to 13 mm in similar position. Left comminuted iliac wing fracture with drain in place in an adjacent fluid collection which is smaller compared to 04/28/2022, however fluid extending into the left vastus muscles, partially seen, appears slightly enlarged (2/89, 2/). Likely chronic diverticular inflammation and wall thickening of the sigmoid colon, please consider correlation with colonoscopy results. Other findings as above. Chest findings separately dictated Dictated by: Douglas Fernandez M.D. on 06/02/2022 at 11:17 Approved by: Douglas Fernandez M.D. on 06/02/2022 at 11:27
--- NOTE | 2022-06-02 10:07 | PC.NURSE ---
assessment with patient and provider present. history of fall from ladder in dec last year. broken left arm but also abdominal cyst. pt still has drain in place and is on IV abx daily for infection. in rehab at [facility] until he is feeling better. picc line in left arm. starting at 0330 this morning patient states he woke up and his left arm was jerking/twitching about, then he felt an intense cramp down his arm. He was scared he was having a stroke, so he began calling for help and tried to get out of bed to find the nurse. pt then slid to floor (witnessed by nurse). pt states his brain feels foggy today. pt arm in now feeling fine. equal med care manager, face is symmetrical. verbal order to begin fluids by provider at 999ml/hr due to high lactate levels. using IV in right forearm
--- NOTE | 2022-06-02 10:13 | DI.US.S_ITS ---
PROCEDURE: US PERIPH VENOUS UP EXTREM LT INDICATIONS: ? dvt TECHNIQUE: Real-time imaging, as well as color and pulse Doppler interrogation, was performed of the left upper extremity deep veins from the inferior neck to the antecubital fossa. COMPARISON: [facility], CR, XR CHEST 1V, 06/02/2022, 9:33. FINDINGS: There is a PICC line on the left. Unable to visualize the central left brachial vein and basilic vein due to PICC line dressing. The internal jugular vein, visualized portions of the subclavian vein and axillary veins are free of intraluminal thrombus. Where physically possible, the veins are normally compressible. Color and pulse Doppler demonstrate normal intraluminal flow, with expected phasicity and pulsatility. Additional scanning of the cephalic and basilic veins of the superficial system demonstrate normal compressibility, without thrombus. IMPRESSION: 1. No DVT in the left upper extremity is identified on ultrasound. 2. Compromised exam due to inability to visualize the central brachial vein and basilic vein due to a PICC line dressing. Dictated by: Danielle Jaffe M.D. on 06/02/2022 at 10:49 Approved by: Danielle Jaffe M.D. on 06/02/2022 at 10:53
[2022-06-02] MEDS: SODIUM CHLORIDE 0.9% 2,721.54 ML 907.18 ML IV (10:16)
[2022-06-02 10:48] LABS: Prolactin 16.9 ng/mL (3.7-17.9)
[2022-06-02 11:16] LABS: Reflexed Lactate in 2 Hours Y
--- NOTE | 2022-06-02 11:33 | DI.CT.S_ITS ---
PROCEDURE: CT HEAD/BRAIN WO CON INDICATIONS: new seizure TECHNIQUE: Noncontrast 4.5 mm thick angled axial sections acquired from the foramen magnum to the vertex, with coronal and sagittal reformats. For radiation dose reduction, the following was used: automated exposure control, adjustment of mA and/or kV according to patient size. COMPARISON: None. FINDINGS: Image quality: Limited due to presence of contrast CSF spaces: Basal cisterns are patent. Lateral ventricles are symmetric. Volume: Vascular calcifications. Periventricular white matter disease is commonly seen with chronic microangiopathy. Volume loss is present. These findings are [id number] Brain: No definite intracranial hemorrhage, although this is difficult to evaluate due to the presence of recently administered contrast. No gross loss of moraes-white differentiation. Craniofacial structures: Right paranasal sinus mucous cyst. Orbits are unremarkable. IMPRESSION: Limited evaluation due to the presence of recently administered contrast. No definite large hematoma. Consider later reassessment following contrast clearance. If there is high concern for parenchymal abnormality also consider MRI. Dictated by: Douglas Fernandez M.D. on 06/02/2022 at 11:51 Approved by: Douglas Fernandez M.D. on 06/02/2022 at 11:54
[2022-06-02 11:57] LABS: Appearance Urine UA CLEAR; Bilirubin Urine UA NEGATIVE (NEGATIVE); Color Urine UA YELLOW; Glucose Urine UA TRACE g/dL (Negative); Ketones Urine UA NEGATIVE (NEGATIVE); Leukocyte Esterase Urine UA NEGATIVE (NEGATIVE); Nitrite Urine UA NEGATIVE (Negative); Occult Blood Urine UA 1+ (Negative); Protein Urine UA TRACE (Negative); Urobilinogen Urine UA 0.2 E.U./dL (0.2)
[2022-06-02] MEDS: LORazepam 2 MG/ML INJ (11:58)
--- NOTE | 2022-06-02 12:01 | PC.NURSE ---
RN was in room next door when TAXI SERVICER called out for help. STEPHON Vaz called for MD immediately stating pt is having a seizure. tonic/clonic movements noted. oral airway placed by RT who was present in ER. seizure pads placed on bed. Pt given 1mg ativan. pt taken to CT for head scan. RN accompanied pt to CT. oral airway removed at 1200. pt responding to verbal stimuli at this time. able to swallow. evaluation of mouth shows large bruise on left side of tongue. MD notified.
[2022-06-02 12:06] LABS: Bacteria Urine None Seen; Culture Indicated Urine Cult Not Indicated; RBC Urine 1-5/HPF (0-5/HPF); Squamous Epithelial Cell Urine 0-1 /HPF (0-5/HPF); WBC Urine 1-5/HPF (0-5/HPF)
[2022-06-02] MEDS: HEPARIN DRIP 25,000 UNIT/500 ML IV.SOLN 24 UNIT IV (12:17)
[2022-06-02] MEDS: HEPARIN 5,000 UNIT/ML VIAL 7300 UNIT IV (12:17)
[2022-06-02 12:27] LABS: PTT Partial Thromboplastin Tim 27 SECONDS (26-36)
--- NOTE | 2022-06-02 12:35 | PC.NURSE ---
pt has picc line in left arm. assessed for multiple infusions. scrubbed hub for 30 seconds, tamara back blood and flushed with saline prior to start of infusion.
[2022-06-02 12:43] LABS: Lactate 2HR (Lactic Acid Rflx) 8.9 mmol/L (0.7-2.1)
--- NOTE | 2022-06-02 13:23 | DI.MRI.S_ITS ---
PROCEDURE: MR HEAD/BRAIN WO CON INDICATIONS: seizure TECHNIQUE: Non-contrast axial T1 spin echo, axial T2 fast spin echo, sagittal and axial FLAIR, coronal T2 fast spin echo, axial gradient echo, axial diffusion and ADC through the brain. COMPARISON: [facility], CT, CT HEAD/BRAIN WO CON, 06/02/2022, 11:37. FINDINGS: Image quality: This examination is limited by involuntary motion artifact. CSF spaces: Ventricles appear symmetric in size and shape. Basal cisterns are patent. No extra-axial fluid collections. Brain: A few foci of susceptibility artifact can be seen, as demonstrated on series 10, image 17. No intracranial mass effects. There is cerebral volume loss for age. There are periventricular and deep white matter chronic small vessel ischemic changes. Brainstem appears normal. Diffusion-weighted images show no acute ischemic insults. No chronic ischemic insults. Normal intravascular flow voids are present. Relatively prominent perivascular spaces are noted. Skull and face: Calvarial bone marrow is normal in signal. Orbits are normal. Sinuses: S there is a mucous retention cyst seen within the posterior inferior right maxillary sinus. The paranasal sinuses are otherwise relatively clear. No abnormal fluid is seen within the mastoid air cells. IMPRESSION: A few foci of susceptibility artifact can be seen, which are likely related to areas of remote hemorrhage. Otherwise, brain MRI within normal limits for age. Dictated by: Andi Huitron M.D. on 06/02/2022 at 18:24 Approved by: Andi Huitron M.D. on 06/02/2022 at 18:26
--- NOTE | 2022-06-02 13:33 | DI.ECHO.S_ITS ---
[facility]---------+ [facility] +---------+ : : [address] [place] [address] : : : : [id number] : : : : Phone: [phone]+ Echocardiogram Report + + :Name: PATO AKERS Study Date: 06/02/2022 Height: 72 in : :[facility] ReadingLocation: Weight: 190 lb : : Gender: Male BSA: 2.1 m2 : :: 1955 Age: 66 yrs BP: 149/80 mmHg: :Reason For Study: RIGHT HEART STRAIN HR: 75 : :Ordering Physician: DONNIE, : :MORGAN Performed By: MILO SILVA : :Referring: MORGAN FIELDS : + + Interpretation Summary Pt could not stay awake to follow breathing/position instructions. The ejection fraction is estimated to be 55-60%. Diastolic parameters suggest probable normal left ventricular diastolic function and normal filling pressures. The right ventricle is normal in size and function. The right atrium is mildly dilated. There is mild tricuspid regurgitation. The right ventricular systolic pressure is estimated to be at least 18 mmHg based on an estimated right atrial pressure of 3 mm Hg. Procedure: A two-dimensional transthoracic echocardiogram with color flow and Doppler was performed. The study quality was technically difficult. There is no prior echocardiogram noted for this patient. The patient was in normal sinus rhythm during the exam. Left Ventricle: The left ventricle is normal in size and wall thickness. Left ventricular systolic function is normal. The ejection fraction is estimated to be 55-60%. Diastolic parameters suggest probable normal left ventricular diastolic function and normal filling pressures. Right Ventricle: The right ventricle is normal in size and function. Atria: The left atrial size is normal. The right atrium is mildly dilated. There is no Doppler evidence for an interatrial shunt. Mitral Valve: The mitral valve is normal in structure and function. There is trace mitral regurgitation. Aortic Valve: The aortic valve opens well. There is no aortic valve stenosis. No aortic regurgitation is present. Tricuspid Valve: The tricuspid valve is normal in structure and function. There is mild tricuspid regurgitation. The right ventricular systolic pressure is estimated to be at least 18 mmHg based on an estimated right atrial pressure of 3 mm Hg. Pulmonic Valve: The pulmonic valve is normal in structure and function. There is no pulmonic valvular regurgitation. Great Vessels: The aortic root is normal size. The ascending aorta could not be visualized. The IVC is of normal diameter and collapses greater than 50% with a sniff. This suggests a low right atrial pressure of 3 mm Hg. Pericardium/ Pleura There is no pericardial effusion. There is no pleural effusion. MMode/2D Measurements & Calculations LVIDd: 4.6 cm LVOT diam: 2.2 cm LVIDs: 3.6 cm Ao root diam: 4.1 cm FS: 22.6 % IVSd: 1.1 cm LVPWd: 1.3 cm LV arizmendi. diameter/BSA (cm/m^2): 2.2 LV sys. diameter/BSA (cm/m^2): 1.7 LA A2 area: 18.6 cm2 RA long axis: 4.6 cm LA A4 area: 18.3 cm2 RA area: 14.0 cm2 LA length (vol): 4.7 cm RA vol: 36.2 ml LA vol: 61.4 ml RA : 17.4 ml/m2 LA vol index: 29.5 ml/m2 IVC diam: 1.8 cm RVD1 (basal): 4.5 cm TAPSE: 2.2 cm Doppler Measurements & Calculations Ao V2 max: 122.7 cm/sec LVOT Max Panda: 112.9 cm/sec Ao V2 mean: 87.0 cm/sec LV V1 max P.1 mmHg Ao max P.0 mmHg LV V1 VTI: 22.1 cm Ao mean P.3 mmHg DENIZ(I,D): 3.5 cm2 Ao V2 VTI: 23.8 cm DENIZ(V,D): 3.5 cm2 sev ratio: 0.93 DENIZ indexed to BSA (cm^2/m^2): 1.7 MV E max panda: 37.8 cm/sec TR max panda: 191.0 cm/sec MV A max panda: 55.0 cm/sec TR max P.6 mmHg MV E/A: 0.69 PA V2 max: 72.7 cm/sec Med Peak E' Panda: 9.4 cm/sec PA V2 mean: 53.7 cm/sec E/E' med: 4.0 PA mean P.2 mmHg Lat Peak E' Panda: 9.3 cm/sec PA pr(Accel): 37.9 mmHg E/E' lat: 4.1 E/e' average: 4.0 MV dec time: 0.24 sec SV(LVOT): 83.4 ml Reading Physician:04:57 PM
[2022-06-02] MEDS: levETIRAcetam 1,000 MG in SODIUM CHLORIDE 0.9% 100 ML 440 MG IV (14:32)
[2022-06-02 16:05] LABS: Lactate (Lactic Acid) 0.9 mmol/L (0.7-2.1)
[2022-06-02 18:12] LABS: PTT Partial Thromboplastin Tim 58 SECONDS (26-36)
[2022-06-02 18:43] LABS: NT-proBNP (BNP-Adult 18+) 93 pg/mL (<125)
--- NOTE | 2022-06-02 18:50 | PC.NURSE ---
acknowledged PTT resulted, pt is currently at MRI, will give bolus and increase rate upon return to ER
[2022-06-02] MEDS: HEPARIN 5,000 UNIT/ML VIAL 2000 UNIT IV (19:24)
[2022-06-02 23:31] LABS: Hematocrit 35.9 % (41-53); Hemoglobin 12.1 g/dL (13.5-17.5)
[2022-06-02 23:41] LABS: Magnesium 1.9 mg/dL (1.6-2.3)
[2022-06-03] VITALS (15 sets, daily range): BP systolic 90–127; BP diastolic 57–81; PULSE 69–93; RESP 12–27; TEMP 36.8–37.2; O2SAT 92–97; BMI 27.1
[2022-06-03 01:33] LABS: PTT Partial Thromboplastin Tim 50 SECONDS (26-36)
[2022-06-03] MEDS: HEPARIN 5,000 UNIT/ML VIAL 2000 UNIT IV ×2 (01:43→06:44)
--- NOTE | 2022-06-03 03:03 | P.HP_ITS ---
History of Present Illness History of Present Illness Date Patient Seen: 06/02/22 Time Patient Seen: 23:15 Chief complaint: Foggy, possible infection Narrative: Johnny Prieto is a 66-year-old female with a medical history of type 2 diabetes on oral medications, history of nephrolithiasis, history of submassive PE in the setting of polytrauma, history of fall from 40 ft that resulted in numerous injuries TORI, retroperitoneal hematoma, numerous left-sided rib fractures, left lower lobe pulmonary laceration, trace pneumothorax, splenic laceration, right intertrochanteric proximal femur fracture, left superior scapular fracture, left iliac wing commuted fracture, L2 vertebral body linear fracture, and C7-T1 to T9, L2-L4 fractures. Mr. Ida Madison fell off his roof approximately 40 ft resulting in multiple injuries, he was seen at [facility] for multiple injuries including a submassive PE. He subsequently had stopped his anticoagulation, and developed shortness of breath which took him to would be [facility] then transferred to [facility] -no PE was found on imaging. He was found to have a left hydronephrosis with a 14 mm stone in the ureter and a UTI positive ESBL E coli and was treated with Merrem pinna he was transferred to [facility] in [place]. At [place] Dr. Jacobs placed a ureteral stent on 04/29, cultures grew ESBL E coli in urine and blood, he was then placed on ertapenem PICC line was placed, ID was consulted when the patient continued to complain of left iliac bone pain. Patient was found to have a superinfected peritoneal abscess, possible concerns for osteomyelitis. An IR guided drain was placed. Patient was then discharged to [facility] with plans for him to receive IV ertapenem daily 1 g x 3 months. Patient resided at [facility] from 04/29/2022-05/10/2022. The patient presented to the ED today with some confusion and shaking of his left arm.?Per Dr. Cheema: Initially he said when he raise his left arm it Shuck when he lowered down there was no tremors.? Lactate is 6.5 no leukocytosis he has been afebrile questionable sepsis versus seizure.? Prolactin is negative procalcitonin is negative.? He is already on antibiotics. CT angio was done secondary to hypoxia and tachycardia he is found pulmonary embolism not unstable at this time. CT abdomen pelvis shows stable fluid collection and even smaller. Called to patient room he is having full-blown tonic-clonic seizure bit tongue.? He is given 1 mg of Ativan.? This is the exact moment when lab was supposed to draw a repeat lactate.? Repeat lactate is then again elevated.? At this time I do think the lactic acid is probably related to seizure he likely had a seizure prior to arrival.? Initial lactate 6.5 repeat 8.9 and finally a repeat is at 0.9.? He is loaded with Keppra IV. He is started on heparin drip for his pulmonary embolism.? Patient had no white count neutrophils 9400, bicarb 20, glucose 179, alk-phos 203. Troponin, BNP, procalcitonin, UA, COVID, prolactin were all unremarkable. Brain MRI demonstrated few foci possible artifact or areas of remote hemorrhage, echo was normal with an EF of 55-60%, PB ultrasound was negative for DVT, chest CTA was positive for left PE, chest x-ray was nega tive for any acute changes, ABD/P CT noted moderate to severe right hydronephrosis, decreased left hydronephrosis, post stent left mid ureter stable with a 13 mm stone. Patient is admitted to the ICU with tele ICU although boarding in the ED for acute respiratory failure is currently requiring 3 L nasal cannula as he initially presented to the ED hypoxic tachycardic with O2 saturations in the 80s on room air,, new onset seizure, new pulmonary embolus left on heparin drip, and peritoneal abscess with drain present. On admit patient denies chest pain, shortness in breath, headache, changes in vision, difficulty swallowing, speech impairment, weakness, numbness, tingling, head injury, LOC, fever, body aches, chills, cough, recent exposure to illness, current abdominal pain, nausea, vomiting, urinary incontinence/retention, dysuria, frequency, urgency, hematuria, bowel changes, constipation, incontinence, melena, rashes. Patient History Medical History (Updated 06/03/22 @ 03:25 by ERLIN Botello) Type 2 diabetes mellitus Surgical History (Updated 06/03/22 @ 03:25 by ERLIN Botello) History of ureter stent Family & Social History Safety & Behavioral: Feels Safe in Current Yes Environment Tobacco & Substance use: Smoking Status Never smoker alcohol intake frequency 0-2 drinks per day Substance Use Type marijuana Meds Home Medications and Allergies Allergies Allergy/AdvReac Type Severity Reaction Status Date / Time midazolam [From Versed] AdvReac Drowsy Verified 06/02/22 15:36 Review of Systems Review of Systems Narrative: All 12 point systems reviewed with the patient and are negative except otherwise documented. Exam Vital Signs (past 8 hours): - 06/02/22 19:04 06/02/22 19:10 06/02/22 19:10 Pulse Rate 75 74 Respiratory Rate 21 Blood Pressure 145/87 H Pulse Oximetry 94 97 06/02/22 19:30 06/02/22 19:30 06/02/22 20:00 Pulse Rate 81 Respiratory Rate 32 H Blood Pressure 163/108 H 144/82 H Pulse Oximetry 98 06/02/22 20:00 06/02/22 20:30 06/02/22 20:30 Pulse Rate 70 82 Respiratory Rate 23 18 Blood Pressure 149/70 H Pulse Oximetry 98 96 06/02/22 21:00 06/02/22 21:00 06/02/22 21:15 Pulse Rate 77 Respiratory Rate 18 Blood Pressure 153/76 H 103/56 L Pulse Oximetry 97 06/02/22 21:15 06/02/22 21:30 06/02/22 21:30 Pulse Rate 78 82 Respiratory Rate 16 42 H Blood Pressure 125/60 Pulse Oximetry 96 97 06/02/22 21:45 06/02/22 21:45 06/02/22 22:00 Pulse Rate 87 Respiratory Rate 30 H Blood Pressure 140/71 138/72 Pulse Oximetry 98 06/02/22 22:00 06/02/22 22:16 06/02/22 22:16 Pulse Rate 92 H 88 Respiratory Rate 26 H 20 Blood Pressure 144/96 H Pulse Oximetry 99 97 06/02/22 22:30 06/02/22 22:30 06/02/22 22:45 Pulse Rate 77 Respiratory Rate 15 Blood Pressure 109/66 111/67 Pulse Oximetry 96 06/02/22 22:45 06/02/22 23:00 06/02/22 23:15 Pulse Rate 81 104 H Respiratory Rate 16 36 H Blood Pressure 119/75 Pulse Oximetry 93 91 06/02/22 23:15 06/02/22 23:30 06/02/22 23:30 Pulse Rate 76 81 Respiratory Rate 18 13 Blood Pressure 141/73 H Pulse Oximetry 94 96 06/02/22 23:45 06/02/22 23:45 06/03/22 00:00 Pulse Rate 74 Respiratory Rate 16 Blood Pressure 119/67 116/65 Pulse Oximetry 95 06/03/22 00:00 06/03/22 00:15 06/03/22 00:15 Pulse Rate 70 75 Respiratory Rate 22 15 Blood Pressure 124/67 Pulse Oximetry 95 94 06/03/22 00:30 06/03/22 00:30 06/03/22 01:00 Pulse Rate 93 H Respiratory Rate 27 H Blood Pressure 104/77 127/65 Pulse Oximetry 95 06/03/22 01:00 Pulse Rate 82 Respiratory Rate 16 Blood Pressure Pulse Oximetry 95 Oxygen Delivery Method Nasal Cannula Oxygen Flow Rate 3 Narrative Exam Narrative: General: Patient is a well-developed, well-nourished in no distress at this time. At the time of exam patient is no longer requiring oxygen, O2 saturation 94% on room air. HEENT: Normocephalic, atraumatic, extraocular muscles intact, oral pharynx is clear and mucous membranes are moist. Neck is supple and symmetric, trachea is midline, no adenopathy, no thyroid enlargement, nontender, no masses palpated. Negative for JVD Chest: Normal AP diameter and contour without kyphoscoliosis, no nasal flaring, retractions, or tachypneic labored breathing Lungs: Auscultation of all lung plascencia are clear without adventitious sounds, wheezes, rhonchi, or rales. Cardio: S1 & S2 with regular rate and rhythm without murmur, rubs, or gallops, no carotid bruit, no cardiac pulsations present. Abdomen: Soft nontender, negative for organomegaly, or masses. Left lower quadrant peritoneal abscess drain in place, bloody serous drainage noted. Bowel sounds are present in all 4 quadrants without guarding or rebound, no CVA tenderness. Musculoskeletal: Muscle strength and tone are equal within normal limits, no deformity, crepitus, effusions, cyanosis, clubbing or edema present. Full range of motion intact radial and pedal pulses are normal. PICC line in left upper extremity Skin: Warm dry and intact without rashes, ulcerations or petechiae. Neuro: Alert and orientated x3, strength is +5/5 in all extremities, sensation to touch intact, no gross deficits noted of cranial nerves. Psych: Patient has a well-kept appearance, appropriate affect, mental status attitude thought context and judgment are appropriate for age. Objective Labs 06/02/22 23:24 06/02/22 09:05 Labs: Laboratory Results - last 24 hr 06/02/22 06/02/22 06/02/22 09:05 09:05 09:05 WBC 10.8 RBC 5.01 Hgb 14.2 Hct 42.2 MCV 84.3 MCH 28.4 MCHC 33.7 RDW 16.3 H Plt Count 271 Neut % (Auto) 87.7 H Lymph % (Auto) 8.6 L [place] % (Auto) 3.3 Eos % (Auto) 0.2 L Baso % (Auto) 0.2 Neut # (Auto) 9400 H Lymph # (Auto) 900 L [place] # (Auto) 400 Eos # (Auto) 0 Baso # (Auto) 0 APTT Sodium 138 Potassium 4.3 Chloride 105 Carbon Dioxide 20 L BUN 19 Creatinine 1.14 Estimated GFR > 60 BUN/Creatinine Ratio 16.7 Glucose 179 H Lactate 6.5 H* Calcium 9.2 Magnesium Total Bilirubin 0.5 AST 34 ALT 33 Alkaline Phosphatase 203 H Total Creatine Kinase 107 CK-MB (CK-2) 1.77 CK-MB (CK-2) Rel Index 1.7 Troponin I < 0.012 NT-Pro-B Natriuret Pep Total Protein 8.1 Albumin 4.3 Globulin 3.8 Albumin/Globulin Ratio 1.1 Procalcitonin 0.08 Prolactin Urine Color Urine Appearance Urine pH Ur Specific [place] Urine Protein Urine Glucose (UA) Urine Ketones Urine Occult Blood Urine Nitrate Urine Bilirubin Urine Urobilinogen Ur Leukocyte Esterase Urine RBC Urine WBC Ur Squamous Epith Cells Urine Bacteria Ur Culture Indicated? SARS-CoV-2 (PCR) 06/02/22 06/02/22 06/02/22 09:05 09:19 10:00 WBC RBC Hgb Hct MCV MCH MCHC RDW Plt Count Neut % (Auto) Lymph % (Auto) [place] % (Auto) Eos % (Auto) Baso % (Auto) Neut # (Auto) Lymph # (Auto) [place] # (Auto) Eos # (Auto) Baso # (Auto) APTT Sodium Potassium Chloride Carbon Dioxide BUN Creatinine Estimated GFR BUN/Creatinine Ratio Glucose Lactate Calcium Magnesium Total Bilirubin AST ALT Alkaline Phosphatase Total Creatine Kinase CK-MB (CK-2) CK-MB (CK-2) Rel Index Troponin I NT-Pro-B Natriuret Pep 93 Total Protein Albumin Globulin Albumin/Globulin Ratio Procalcitonin Prolactin 16.9 Urine Color Urine Appearance Urine pH Ur Specific [place] Urine Protein Urine Glucose (UA) Urine Ketones Urine Occult Blood Urine Nitrate Urine Bilirubin Urine Urobilinogen Ur Leukocyte Esterase Urine RBC Urine WBC Ur Squamous Epith Cells Urine Bacteria Ur Culture Indicated? SARS-CoV-2 (PCR) Negative 06/02/22 06/02/22 06/02/22 10:47 11:55 11:55 WBC RBC Hgb Hct MCV MCH MCHC RDW Plt Count Neut % (Auto) Lymph % (Auto) [place] % (Auto) Eos % (Auto) Baso % (Auto) Neut # (Auto) Lymph # (Auto) [place] # (Auto) Eos # (Auto) Baso # (Auto) APTT 27 Sodium Potassium Chloride Carbon Dioxide BUN Creatinine Estimated GFR BUN/Creatinine Ratio Glucose Lactate 8.9 H* Calcium Magnesium Total Bilirubin AST ALT Alkaline Phosphatase Total Creatine Kinase CK-MB (CK-2) CK-MB (CK-2) Rel Index Troponin I NT-Pro-B Natriuret Pep Total Protein Albumin Globulin Albumin/Globulin Ratio Procalcitonin Prolactin Urine Color Yellow Urine Appearance Clear Urine pH 6.0 Ur Specific [place] 1.020 Urine Protein Trace H Urine Glucose (UA) Trace H Urine Ketones Negative Urine Occult Blood 1+ H Urine Nitrate Negative Urine Bilirubin Negative Urine Urobilinogen 0.2 Ur Leukocyte Esterase Negative Urine RBC 1-5/hpf Urine WBC 1-5/hpf Ur Squamous Epith Cells 0-1 /hpf Urine Bacteria None seen Ur Culture Indicated? Cult not indicated SARS-CoV-2 (PCR) 06/02/22 06/02/22 06/02/22 15:46 17:55 23:24 WBC RBC Hgb Hct MCV MCH MCHC RDW Plt Count Neut % (Auto) Lymph % (Auto) [place] % (Auto) Eos % (Auto) Baso % (Auto) Neut # (Auto) Lymph # (Auto) [place] # (Auto) Eos # (Auto) Baso # (Auto) APTT 58 H D Sodium Potassium Chloride Carbon Dioxide BUN Creatinine Estimated GFR BUN/Creatinine Ratio Glucose Lactate 0.9 Calcium Magnesium 1.9 Total Bilirubin AST ALT Alkaline Phosphatase Total Creatine Kinase CK-MB (CK-2) CK-MB (CK-2) Rel Index Troponin I NT-Pro-B Natriuret Pep Total Protein Albumin Globulin Albumin/Globulin Ratio Procalcitonin Prolactin Urine Color Urine Appearance Urine pH Ur Specific [place] Urine Protein Urine Glucose (UA) Urine Ketones Urine Occult Blood Urine Nitrate Urine Bilirubin Urine Urobilinogen Ur Leukocyte Esterase Urine RBC Urine WBC Ur Squamous Epith Cells Urine Bacteria Ur Culture Indicated? SARS-CoV-2 (PCR) 06/02/22 06/03/22 23:24 01:15 WBC RBC Hgb 12.1 L Hct 35.9 L MCV MCH MCHC RDW Plt Count Neut % (Auto) Lymph % (Auto) [place] % (Auto) Eos % (Auto) Baso % (Auto) Neut # (Auto) Lymph # (Auto) [place] # (Auto) Eos # (Auto) Baso # (Auto) APTT 50 H Sodium Potassium Chloride Carbon Dioxide BUN Creatinine Estimated GFR BUN/Creatinine Ratio Glucose Lactate Calcium Magnesium Total Bilirubin AST ALT Alkaline Phosphatase Total Creatine Kinase CK-MB (CK-2) CK-MB (CK-2) Rel Index Troponin I NT-Pro-B Natriuret Pep Total Protein Albumin Globulin Albumin/Globulin Ratio Procalcitonin Prolactin Urine Color Urine Appearance Urine pH Ur Specific [place] Urine Protein Urine Glucose (UA) Urine Ketones Urine Occult Blood Urine Nitrate Urine Bilirubin Urine Urobilinogen Ur Leukocyte Esterase Urine RBC Urine WBC Ur Squamous Epith Cells Urine Bacteria Ur Culture Indicated? SARS-CoV-2 (PCR) Assessment & Plan Assessment & Plan narrative: Johnny Prieto is a 66-year-old female with a medical history of type 2 diabetes on oral medications, history of nephrolithiasis, history of submassive PE in the setting of polytrauma, history of fall from 40 ft that resulted in numerous injuries TORI, retroperitoneal hematoma, numerous left-sided rib fractures, left lower lobe pulmonary laceration, trace pneumothorax, splenic laceration, right intertrochanteric proximal femur fracture, left superior scapular fracture, left iliac wing commuted fracture, L2 vertebral body linear fracture, and C7-T1 to T9, L2-L4 fractures. Mr. Prieto requires hospitalization after failing outpatient management. Patient is admitted to the ICU with tele ICU although cornelius patel in the ED for acute respiratory failure is currently requiring 3 L nasal cannula as he initially presented to the ED hypoxic tachycardic with O2 saturations in the 80s on room air,, new onset seizure, new pulmonary embolus left on heparin drip, and peritoneal abscess with drain present. Since being admitted acute respiratory failure has resolved, no longer requires oxygen support, will continue on heparin drip, will continue ertapenem IV per PICC line, monitor for seizures and await transfer to facility with higher level of care for Neurology, ID, and Urology. 1. Acute respiratory failure with hypoxia, secondary to pulmonary embolus new, recurrent, present on admission -patient admitted to ICU with tele pyridine recovery operator-currently boarding in ED -patient initially required 3 L nasal cannula to maintain O2 saturation greater than 90%-currently is on room air satting at 94% in no respiratory distress and stable. -patient is on insulin drip protocol, monitoring for bleeding -PTT ordered according to protocol -blood cultures pending 2. Seizure, acute, new onset, present on admission -seizure observed in ED:Called to patient room he is having full-blown tonic- clonic seizure bit tongue.? He is given 1 mg of Ativan.? This is the exact moment when lab was supposed to draw a repeat lactate.? Repeat lactate is then again elevated.? At this time I do think the lactic acid is probably related to seizure he likely had a seizure prior to arrival.? Initial lactate 6.5 repeat 8.9 and finally a repeat is at 0.9.? He is loaded with Keppra IV. -continue Keppra 1500 mg b.i.d. -seizure precautions -initiated transfer to facility with Neurology capabilities 3. Peritoneal abscess, acute, present on admission -patient has PICC line in will continue on ertapenem has noted history for posi tive blood and urine cultures for ESBL E coli-has failed meropenem in the past. -the hope is to have the patient transferred back to [facility] where the initial treatment of the abscess and drain was placed, and infectious disease management -I personally reviewed all chart notes from [facility], [facility] -patient continues to have drain present and patent 4. Bilateral hydronephrosis, with ureteral stone, acute, present on admission -ABD/P CT noted moderate to severe right hydronephrosis, decreased left hydronephrosis, post stent left mid ureter stable with a 13 mm stone. -bladder scans as needed, urinary culture pending 4. Insulin-dependent type 2 diabetes, chronic, present on admission-controlled -patient admitted under diabetic protocols -continue Lantus, sliding scale for coverage, BS check a.c. HS -low carb diet 5. BPH, chronic, present on admission -a continued Flomax -bladder scans as needed to monitor for urinary retention -UA was negative, ordered urine culture for verification Code status: Full Surrogate decision maker: ROSA PCR: Negative DVT/VTE prophylaxis: Patient on heparin drip, SCDs Disposition: Patient admitted to the ICU expected length of stay greater than 2 midnights, though immediately initiated transfers to a facility with a higher level of care neurology and Infectious Disease for management. I have utilized all available immediate resources to obtain, update, or review the patient's current medications. I personally spent greater than 60 minutes critical care admit time. I confirmed that the patient's advanced care plan is present, Code status is documented and/or surrogate decision maker is listed in the patient's medical record. I have personally reviewed patient's chart notes from PCP, specialists, diagnostic imaging, and laboratory results.
--- NOTE | 2022-06-03 04:18 | PC.NURSE ---
Pt a/ox4, cms intact in all extremities, adequate label press operator and pedal strengths, PERRLA, denies any numbness or tingling. Neuro status checked with these results every 2 hours since 2300.
[2022-06-03 06:03] LABS: Add Manual Diff / Slide Review NO; Basophils Absolute Auto 0 /uL (0-100); Basophils Percent Auto 0.4 % (0-2); Eosinophils Absolute Auto 100 /uL (0-450); Eosinophils Percent Auto 0.9 % (2-4); Hematocrit 36.3 % (41-53); Hemoglobin 12.3 g/dL (13.5-17.5); Lymphocytes Absolute Auto 1400 /uL (1100-4500); Lymphocytes Percent Auto 20.1 % (25-40); Mean Corpuscular HGB Conc 33.9 % (30-36); Mean Corpuscular Hemoglobin 28.1 PG (26-34); Mean Corpuscular Volume 82.9 fL (80-100); Monocytes Absolute Auto 500 /uL (0-900); Monocytes Percent Auto 7.7 % (3-14); Neutrophils Absolute Auto 4800 /uL (1500-7000); Neutrophils Percent Auto 70.9 % (50-75); Platelet Count 220 X10^3/uL (150-400); Red Blood Cell Count 4.38 X10^6/uL (4.5-5.9); Red Cell Distribution Width 16.5 % (11.6-14.8); White Blood Cell Count 6.8 X10^3/uL (4.5-11.0)
[2022-06-03 06:07] LABS: PTT Partial Thromboplastin Tim 54 SECONDS (26-36)
[2022-06-03 06:11] LABS: Alanine Aminotransferase 25 IU/L (<50); Albumin 3.4 g/dL (3.5-5.0); Alkaline Phosphatase 143 U/L (38-126); Aspartate Aminotransferase 25 IU/L (17-59); BUN Creatinine Ratio 13.5 (6-22); Bilirubin Total 0.5 mg/dL (0.2-1.3); Blood Urea Nitrogen 14 mg/dL (9-20); Calcium 8.6 mg/dL (8.4-10.2); Carbon Dioxide 26 mmol/L (22-32); Chloride 106 mmol/L (98-107); Estimated Glomerular Filt Rate > 60 mL/min (>60); Globulin 3.3 g/dL (1.7-4.1); Glucose 109 mg/dL (80-110); HEMOLYSIS < 15 (0-50); Potassium 3.9 mmol/L (3.4-5.1); Sodium 138 mmol/L (137-145); Total Protein 6.7 g/dL (6.3-8.2)
[2022-06-03] MEDS: ERTAPENEM 1 GM in SODIUM CHLORIDE 0.9% 100 ML IV (06:19)
[2022-06-03] MEDS: HYDROCODONE/ACET 5/325 TABLET 2 TAB PO (06:20)
[2022-06-03 07:34] LABS: MRSA (Nasal) PCR Not Detected (Not Detect)
[2022-06-03] MEDS: levETIRAcetam 250 MG TABLET 1500 MG PO ×2 (08:20)
--- NOTE | 2022-06-03 09:15 | PC.NURSE ---
patient discharged via EMS to [facility] at 0910
[2022-06-04 10:34] LABS: Labcorp Hemoglobin (Hb) A1c 6.2 % (4.8-5.6)
== END 2022-06-03 09:10 | disposition short-term general hospital (02) | DRG 175 ==
LOC: ED 06-03 05:21 → AC 06-03 05:22 → ICU 06-03 05:23
PROVIDERS: Emergency Medicine; Admitting Provider Nurse Practitioner Family; Emergency Provider Emergency Medicine; PCP Registered Nurse; Referring Provider Emergency Medicine; Visit Provider Nurse Practitioner Family
DX: I26.99 Other pulmonary embolism without acute cor pulmonale (principal); J96.01 Acute respiratory failure with hypoxia; K65.1 Peritoneal abscess; N13.30 Unspecified hydronephrosis; G40.89 Other seizures; N20.1 Calculus of ureter; E11.9 Type 2 diabetes mellitus without complications; N40.0 Benign prostatic hyperplasia without lower urinary tract symptoms; Z79.4 Long term (current) use of insulin; Z20.822 Contact with and (suspected) exposure to COVID-19
CPT/HCPCS: 36415; 36592; 70450; 70551; 71045; 71275; 74177; 80053; 81001; 82550; 82553; 82962; 83036; 83605; 83735; 83880; 84145; 84146; 84484; 85014; 85018; 85025; 85730; 87040; 87086; 87635; 87797; 93005; 93010; 93306; 93971; 96365; 96366; 96368; 96376; 99285; C9803; J1335; J1644; J1953; J2060

== ENCOUNTER → 2022-07-01 15:22 | Outpatient (ROUT) | payer MEDICARE, MEDICAID, SELFPAY ==
[2022-06-03 05:40] VITALS: BMI 27.1
[2022-07-01 15:28] LABS: Appearance Urine UA CLOUDY; Bilirubin Urine UA 1+ (NEGATIVE); Color Urine UA RED; Glucose Urine UA NEGATIVE (Negative); Ketones Urine UA TRACE (NEGATIVE); Leukocyte Esterase Urine UA TRACE (NEGATIVE); Nitrite Urine UA POSITIVE (Negative); Occult Blood Urine UA 3+ (Negative); Protein Urine UA 2+ (Negative); pH Urine UA 5.5 (4.5-8.0)
[2022-07-01 15:38] LABS: Bacteria Urine Moderate (10-30); Culture Indicated Urine Specimen Cultured; RBC Urine 5-10/HPF (0-5/HPF); WBC Urine 1-5/HPF (0-5/HPF)
[2022-07-01 15:40] LABS: Ictotest Urine Negative (Negative)
== END ==
PROVIDERS: PCP Registered Nurse; Visit Provider Internal Medicine
DX: Z48.816 Encounter for surgical aftercare following surgery on the genitourinary system (principal); K65.1 Peritoneal abscess; N13.2 Hydronephrosis with renal and ureteral calculous obstruction; Z96.0 Presence of urogenital implants; E11.65 Type 2 diabetes mellitus with hyperglycemia; N40.1 Benign prostatic hyperplasia with lower urinary tract symptoms
CPT/HCPCS: 81001; 87086

== ENCOUNTER → 2022-07-27 11:09 | Outpatient (ROUT) | payer MEDICARE, MEDICAID, SELFPAY ==
[2022-06-03 05:40] VITALS: BMI 27.1
[2022-07-27 11:20] LABS: Add Manual Diff / Slide Review NO; Basophils Absolute Auto 0 /uL (0-100); Basophils Percent Auto 0.5 % (0-2); Eosinophils Absolute Auto 200 /uL (0-450); Hematocrit 40.1 % (41-53); Hemoglobin 13.4 g/dL (13.5-17.5); Lymphocytes Absolute Auto 1200 /uL (1100-4500); Lymphocytes Percent Auto 22.4 % (25-40); Mean Corpuscular HGB Conc 33.4 % (30-36); Mean Corpuscular Hemoglobin 28.6 PG (26-34); Mean Corpuscular Volume 85.5 fL (80-100); Monocytes Absolute Auto 400 /uL (0-900); Monocytes Percent Auto 7.8 % (3-14); Neutrophils Absolute Auto 3600 /uL (1500-7000); Neutrophils Percent Auto 66.3 % (50-75); Platelet Count 207 X10^3/uL (150-400); Red Blood Cell Count 4.68 X10^6/uL (4.5-5.9); Red Cell Distribution Width 14.7 % (11.6-14.8); White Blood Cell Count 5.4 X10^3/uL (4.5-11.0)
[2022-07-27 11:34] LABS: Alanine Aminotransferase 21 IU/L (<50); Albumin 3.7 g/dL (3.5-5.0); Albumin Globulin Ratio 1.4 (1.0-2.8); Alkaline Phosphatase 135 U/L (38-126); Aspartate Aminotransferase 21 IU/L (17-59); BUN Creatinine Ratio 16.7 (6-22); Bilirubin Total 0.4 mg/dL (0.2-1.3); Blood Urea Nitrogen 19 mg/dL (9-20); C-Reactive Protein Quant 0.7 mg/dL (<1.0); Calcium 8.5 mg/dL (8.4-10.2); Carbon Dioxide 25 mmol/L (22-32); Chloride 105 mmol/L (98-107); Estimated Glomerular Filt Rate > 60 mL/min (>60); Globulin 2.7 g/dL (1.7-4.1); Glucose 167 mg/dL (80-110); HEMOLYSIS < 15 (0-50); Potassium 4.1 mmol/L (3.4-5.1); Sodium 138 mmol/L (137-145); Total Protein 6.4 g/dL (6.3-8.2)
[2022-07-27 11:37] LABS: Erythrocyte Sedimentation Rate 7 MM/HR (0-15)
== END ==
PROVIDERS: PCP Registered Nurse; Visit Provider Nurse Practitioner Family
DX: E11.9 Type 2 diabetes mellitus without complications (principal); K65.1 Peritoneal abscess
CPT/HCPCS: 80053; 85025; 85651; 86140

== ENCOUNTER → 2022-07-31 17:18 | Outpatient (ROUT) | payer MEDICARE, MEDICAID, SELFPAY ==
[2022-06-03 05:40] VITALS: BMI 27.1
[2022-07-31 17:25] LABS: Add Manual Diff / Slide Review NO; Basophils Absolute Auto 0 /uL (0-100); Basophils Percent Auto 0.5 % (0-2); Eosinophils Absolute Auto 100 /uL (0-450); Eosinophils Percent Auto 2.3 % (2-4); Hematocrit 38.9 % (41-53); Hemoglobin 13.2 g/dL (13.5-17.5); Lymphocytes Absolute Auto 1500 /uL (1100-4500); Lymphocytes Percent Auto 23.1 % (25-40); Mean Corpuscular HGB Conc 33.9 % (30-36); Mean Corpuscular Hemoglobin 28.4 PG (26-34); Mean Corpuscular Volume 83.8 fL (80-100); Monocytes Absolute Auto 600 /uL (0-900); Monocytes Percent Auto 9.4 % (3-14); Neutrophils Absolute Auto 4200 /uL (1500-7000); Neutrophils Percent Auto 64.7 % (50-75); Platelet Count 212 X10^3/uL (150-400); Red Blood Cell Count 4.64 X10^6/uL (4.5-5.9); Red Cell Distribution Width 14.4 % (11.6-14.8); White Blood Cell Count 6.5 X10^3/uL (4.5-11.0)
[2022-07-31 17:48] LABS: Alanine Aminotransferase 23 IU/L (<50); Albumin 3.5 g/dL (3.5-5.0); Albumin Globulin Ratio 1.3 (1.0-2.8); Alkaline Phosphatase 130 U/L (38-126); Aspartate Aminotransferase 24 IU/L (17-59); BUN Creatinine Ratio 18.8 (6-22); Bilirubin Total 0.2 mg/dL (0.2-1.3); Blood Urea Nitrogen 19 mg/dL (9-20); C-Reactive Protein Quant 0.7 mg/dL (<1.0); Calcium 8.5 mg/dL (8.4-10.2); Carbon Dioxide 26 mmol/L (22-32); Chloride 104 mmol/L (98-107); Estimated Glomerular Filt Rate > 60 mL/min (>60); Globulin 2.6 g/dL (1.7-4.1); Glucose 143 mg/dL (80-110); HEMOLYSIS < 15 (0-50); Potassium 3.8 mmol/L (3.4-5.1); Sodium 137 mmol/L (137-145); Total Protein 6.1 g/dL (6.3-8.2)
[2022-07-31 18:01] LABS: Erythrocyte Sedimentation Rate 9 MM/HR (0-15)
== END ==
PROVIDERS: PCP Registered Nurse; Visit Provider Nurse Practitioner Family
DX: K65.1 Peritoneal abscess (principal); Z48.816 Encounter for surgical aftercare following surgery on the genitourinary system
CPT/HCPCS: 80053; 85025; 85651; 86140